=== PATIENT | male | born 1950 | race African-American/Black ===

== ENCOUNTER → 2020-06-03 | Outpatient (CLI) | payer BC, MEDICARE ==
[~2020-06-03] MED LIST: REGADENOSON 0.4 MG/5 ML DISP.SYRIN. IV ONE
--- NOTE | 2020-06-03 14:37 | RAD ---
MR#: [id number] Date of Study: 06/03/2020 Ordering Physician: SHERMAN NEWMAN Referring Physician: LONNIE YOUNG Tech: RT Jet Klein) (N) APPROVED REPORT Test Type: Pharmacological Stress Nurse/Tech: Ulysses Sheldon RN Test Indications: CAD Cardiac History: smoker, stents, HTN, PPM Medications: See Electronic Medical Record Medical History: See Electronic Medical Record Resting ECG: AV paced Resting Heart Rate: 72 bpm Resting Blood Pressure: 130/70mmHg Pretest Chest Pain: None Nurse/Tech Notes lunga CTA Consent: The procedure was explained to the patient in lay terms. Informed consent was witnessed. Nicolas eout was entered into [employer]. History and Stress Test performed by RT Jet Klein) (N) Pharm. Details Pharmacologic stress testing was performed using 0.4mg per 5ml of regadenoson given intravenously ove r 7-10 seconds. Stress Symptoms No chest pain or symptoms. POST EXERCISE Reason for Termination: Infusion complete Max HR: 97 bpm Max Blood Pressure: 134/74mmHg Blood Pressure response to exercise: Normal blood pressure response during stress. Heart Rate response to exercise: normal response Chest Pain: No. Arrhythmia: No. ST Change: No. INTERPRETATION Stress EKG Conclusion: Baseline EKG showed AV sequential paced rhythm. Nondiagnostic changes at peak stress. No arrhythmias. Imaging Protocol IMAGE PROTOCOL: Rest Tc-99m/stress Tc-99m 1 day Rest: Stress: Viability: Radiopharm.Tc99m OcxgzqtyoZt96j Sestamibi Gubp26uTr 30.2mCi Duration 15min. 10min. Img Date 06/03/2020 06/03/2020 Inj-Img Phtb11asy. 60min. Rest Admin Site:IV - Left ForearmAdministrator: RT Jet Klein)(N) Stress Admin Site: IV - Left ForearmAdministrator: RT Jet Klein)(N) STRESS DATA End Diast. Vol.122.0mlAv. Heart Rate69.0bpm End Syst. Vol.56.0mlCO Index BSA0.0L/min Myocardial Zmso998.0gEject. Juxwetwj68.0% Stress Rates Pk. Fill Rate2.16EDV/secLVtime Pk. Fill 244.99msec Pk. Empty Rate3.57ESV/secLVtime Pk. Azwco851.97msec / Pk. Fill0.40EDV/sec Stress Scores Regional WT1.00Summed WT27.00 Regional WM0.00Summed WM5.00 LV Perfusion Scintigraphic images are technically difficult but there appears to be small reversible defect involv ing the inferior wall consistent with ischemia. Wall Motion Low normal left ventricle systolic function with ejection fraction estimated at 51%. LV Perf. Quant 17 Seg. SSS6.00 17 Seg. SRS0.00 17 Seg. SDS6.00 Stress Defect Extent (% LAD)7.50Rest Defect Extent (% LAD)0.00Rev. Defect Extent (% LAD)4.40 Stress Defect Extent (% LCX) 0.00Rest Defect Extent (% LCX)0.00Rev. Defect Extent (% LCX)0.00 Stress Defect Extent (% RCA)22.20Rest Defect Extent (% RCA)0.00Rev. Defect Extent (% RCA)22.20 Stress Defect Extent (% JUDIT)10.00Rest Defect Extent (% JUDIT)0.00Rev. Defect Extent (% JUDIT)8.90 Conclusion 1. Regadenoson cardioisotope stress test was technically difficult but appears to show small amount o f inferior wall ischemia. 2. Low normal left ventricular systolic function with ejection fraction calculated at 51%. 3. Low to intermediate risk for cardiac events. Signed by : Sherman Newman, Electronically Approved : 06/03/2020 14:36:38
--- NOTE | 2020-06-03 15:16 | CARD ---
MR#: [id number] Date of Study: 06/03/2020 Ordering Physician: SHERMAN NEWMAN, Referring Physician: SHERMAN NEWMAN Tech: Darya Love VALE APPROVED REPORT EXAM: Two-dimensional and M-mode echocardiogram with Doppler and color Doppler. Other Information Quality : Good INDICATION Complete Heart Block, Pacemaker 2D DIMENSIONS RVDd2.7 (2.9-3.5cm)Left Atrium(2D)3.5 (1.6-4.0cm) IVSd1.2 (0.7-1.1cm)Aortic Root(2D)2.7 (2.0-3.7cm) LVDd5.0 (3.9-5.9cm)LVOT Diameter2.1 (1.8-2.4cm) PWd1.0 (0.7-1.1cm)LVDs3.1 (2.5-4.0cm) FS (%) 37.9 %SV78.5 ml LVEF(%)67.9 (>50%) Aortic Valve AoV Peak Teo.159.9cm/sAoV VTI27.0cm AO Peak GR.10.2mmHgLVOT Peak Teo.102.5cm/s AO Mean GR.6mmHgAVA (VMAX)2.24cm2 GERONIMO (VTI)2.50cm2 Mitral Valve MV E Htkoexix28.5cm/sMV DECEL GITZ635dx MV A Sdxfmgcn42.0cm/sE/A Ratio0.7 Tricuspid Valve TR P. Ejdvxfdh814za/sRAP HTRSAWMG5fgPi TR Peak Gr.04yaGyGBWX08uwNh Pulmonary Vein S1 Ybbnjjdi86.7cm/sD2 Rjmqwecv60.0cm/s LEFT VENTRICLE The left ventricle is normal size. There is mild concentric left ventricular hypertrophy. The left ve ntricular systolic function is normal. The Ejection Fraction is 60-65%. Apical motion consistent with pacemaker activation. Transmitral Doppler flow pattern is Grade I-abnormal relaxation pattern. RIGHT VENTRICLE The right ventricle is normal size. The right ventricular systolic function is normal. There is a pac emaker lead in the right ventricle. ATRIA The left atrium size is normal. The right atrium size is normal. A pacemaker is seen in the right atr ium consistent with history. The interatrial septum is intact with no evidence for an atrial septal d efect or patent foramen ovale as noted on 2-D or Doppler imaging. AORTIC VALVE The aortic valve is calcified but opens well. Doppler and Color Flow revealed no significant aortic r egurgitation. There is no significant aortic valvular stenosis. MITRAL VALVE The mitral valve is calcified but opens well. Mitral annular calcification is mild. There is no evide nce of mitral valve prolapse. There is no mitral valve stenosis. Doppler and Color-flow revealed trac e mitral regurgitation. TRICUSPID VALVE The tricuspid valve is normal in structure and function. Doppler and Color Flow revealed trace tricus pid regurgitation. There is no tricuspid valve stenosis. PULMONIC VALVE The pulmonary valve is normal in structure and function. Doppler and Color Flow revealed trace pulmon ic valvular regurgitation. There is no pulmonic valvular stenosis. GREAT VESSELS The aortic root is normal in size. The ascending aorta is normal in size. The IVC is normal in size a nd collapses >50% with inspiration. PERICARDIAL EFFUSION There is no evidence of significant pericardial effusion. Critical Notification Critical Value: No <Conclusion> The left ventricular systolic function is normal. The Ejection Fraction is 60-65%. Transmitral Doppler flow pattern is Grade I-abnormal relaxation pattern. Pacer lead noted RA/RV. Trace mitral regurgitation. Trace tricuspid regurgitation. There is no evidence of significant pericardial effusion. Signed by : Sherman Newman, Electronically Approved : 06/03/2020 15:15:59
== END ==
LOC: NM 08:32
PROVIDERS: ATTEND Internal Medicine Cardiovascular Disease
DX: I34.0 Nonrheumatic mitral (valve) insufficiency (principal); I25.10 Atherosclerotic heart disease of native coronary artery without angina pectoris; I11.9 Hypertensive heart disease without heart failure; Z87.891 Personal history of nicotine dependence
CPT/HCPCS: 78452; 82962; 93017; 93306; A9500; J2785